=== PATIENT | male | born 1980 | race Caucasian/White ===

== ENCOUNTER 2019-11-11 10:19 | Emergency (ER) | payer OTHER ==
[~2019-11-11] VITALS: Ht 188 cm; Wt 136.1 kg
[~2019-11-11 10:19] MED LIST: Aspir 8181 MG PO; D3-20002000 UNIT PO; FISH1000 PO; LISI20 PO; METF850 PO; OMEP20ER PO; SIMV40 PO
[2019-11-11 10:59] LABS: BASOPHILS ABSOLUTE AUTO 0.05 K/mm3 (0.00-0.23); BASOPHILS PERCENT AUTO 1 % (0-2); EOSINOPHILS ABSOLUTE AUTO 0.35 K/mm3 (0.00-0.68); EOSINOPHILS PERCENT AUTO 3 % (0-6); Hematocrit 53.1 % (37.0-53.0); Hemoglobin 18.1 g/dL (13.5-17.5); IMMATURE GRAN ABSOLUTE AUTO 0.02 K/mm3 (0.00-0.10); IMMATURE GRAN PERCENT AUTO 0 % (0-1); LYMPHOCYTES ABSOLUTE AUTO 2.21 K/mm3 (0.84-5.20); LYMPHOCYTES PERCENT AUTO 20 % (21-46); MONOCYTES ABSOLUTE AUTO 0.79 K/mm3 (0.16-1.47); MONOCYTES PERCENT AUTO 7 % (4-13); Mean Corpuscular HGB Conc 34.1 g/dL (31.5-36.5); Mean Corpuscular Volume 91 fL (80-100); Mean Platelet Volume 11.2 fL (9.1-12.4); NEUTROPHILS ABSOLUTE AUTO 7.52 K/mm3 (1.96-9.15); NEUTROPHILS PERCENT AUTO 69 % (41-73); Platelet Count 264 K/mm3 (150-400); RDW Coefficient Variation 13.7 % (11.7-14.2); RDW Standard Deviation 46.5 fL (35.1-46.3); Red Blood Cell Count 5.84 M/mm3 (4.30-5.90); White Blood Cell Count 10.94 K/mm3 (4.00-11.30)
[2019-11-11 11:17] LABS: Alanine Aminotransfer (ALT/SGP 26 U/L (12-78); Albumin, Blood 3.9 g/dL (3.4-5.0); Alk Phos 69 U/L (50-136); Anion Gap 5 mmol/L (6-16); Aspartate Aminotrans (AST/SGOT 16 U/L (12-37); Bilirubin, Total 0.7 mg/dL (0.1-1.0); Blood Urea Nitrogen 12 mg/dL (8-24); Bun/Creatinine Ratio 15.1 (12.0-20.0); CO2, Blood 26 mmol/L (21-32); Calcium, Blood 9.5 mg/dL (8.5-10.1); Chloride, Blood 107 mmol/L (98-108); Creatinine, Blood 0.79 mg/dL (0.60-1.20); Glomerular Filtration Rate >60 (60-); Glucose, Blood 97 mg/dL (70-99); Potassium, Blood 3.6 mmol/L (3.5-5.5); Sodium, Blood 138 mmol/L (136-145); Total Protein, Blood 7.9 g/dL (6.4-8.2)
== END 2019-11-11 12:00 | disposition home or self-care (01) ==
LOC: ER 10:19
PROVIDERS: Emergency Medicine
DX: R10.10 Upper abdominal pain, unspecified (principal); E11.9 Type 2 diabetes mellitus without complications; F41.9 Anxiety disorder, unspecified; F17.200 Nicotine dependence, unspecified, uncomplicated; Z79.899 Other long term (current) drug therapy; Z79.82 Long term (current) use of aspirin; Z79.84 Long term (current) use of oral hypoglycemic drugs
CPT/HCPCS: 36415; 80053; 83690; 84484; 85025; 93005; 93010; 99283-25

== ENCOUNTER → 2020-01-01 | Outpatient (CLI) | payer OTHER ==
[2020-01-17 16:07] LABS: HEPATITIS C QUANTITATION HCV Not Detected IU/mL (.)
== END | disposition home or self-care (01) ==
LOC: LAB SHORT 13:24 → LAB 13:24
PROVIDERS: Family Medicine
DX: Z11.59 Encounter for screening for other viral diseases (principal)
CPT/HCPCS: 87522

== ENCOUNTER 2022-07-15 16:38 | Emergency (ER) | payer OTHER ==
[~2022-07-15] VITALS: Ht 188 cm; Wt 149.7 kg
[2022-07-15 17:17] LABS: BASOPHILS ABSOLUTE AUTO 0.07 K/mm3 (0.00-0.23); BASOPHILS PERCENT AUTO 1 % (0-2); EOSINOPHILS ABSOLUTE AUTO 0.52 K/mm3 (0.00-0.68); EOSINOPHILS PERCENT AUTO 5 % (0-6); Hematocrit 42.8 % (37.0-53.0); Hemoglobin 14.8 g/dL (13.5-17.5); IMMATURE GRAN ABSOLUTE AUTO 0.03 K/mm3 (0.00-0.10); IMMATURE GRAN PERCENT AUTO 0 % (0-1); LYMPHOCYTES ABSOLUTE AUTO 2.66 K/mm3 (0.84-5.20); LYMPHOCYTES PERCENT AUTO 26 % (21-46); MONOCYTES ABSOLUTE AUTO 0.86 K/mm3 (0.16-1.47); MONOCYTES PERCENT AUTO 8 % (4-13); Mean Corpuscular HGB 32.2 pg (26.0-34.0); Mean Corpuscular HGB Conc 34.6 g/dL (31.5-36.5); Mean Corpuscular Volume 93 fL (80-100); Mean Platelet Volume 10.8 fL (9.1-12.4); NEUTROPHILS ABSOLUTE AUTO 6.07 K/mm3 (1.96-9.15); NEUTROPHILS PERCENT AUTO 59 % (41-73); Platelet Count 274 K/mm3 (150-400); RDW Coefficient Variation 13.9 % (11.7-14.2); RDW Standard Deviation 47.5 fL (35.1-46.3); Red Blood Cell Count 4.59 M/mm3 (4.30-5.90); White Blood Cell Count 10.21 K/mm3 (4.00-11.30)
[2022-07-15] MEDS ORDERED: FLUOXETINE HCL20 M1 (17:50)
[2022-07-15] MEDS ORDERED: AMBIEN5 MG PO (17:50)
[2022-07-15] MEDS ORDERED: HYDCHL50 PO (17:51)
[2022-07-15] MEDS ORDERED: Ativan1 MG PO (17:51)
[2022-07-15] MEDS ORDERED: Bupropion HCl100 MG PO (17:51)
[2022-07-15 17:57] LABS: Albumin/Globulin Ratio 1.3 (0.8-1.8); Bilirubin, Total 0.5 mg/dL (0.1-1.0); Bun/Creatinine Ratio 23.1 (12.0-20.0); Calcium, Blood 9.3 mg/dL (8.5-10.1); Creatinine, Blood 0.87 mg/dL (0.60-1.20); Globulin, Blood 3.1 g/dL (2.2-4.0); Potassium, Blood 3.6 mmol/L (3.5-5.5); Total Protein, Blood 7.1 g/dL (6.4-8.2)
== END 2022-07-15 19:25 | disposition home or self-care (01) ==
LOC: ER 16:38
PROVIDERS: Emergency Medicine
DX: F41.9 Anxiety disorder, unspecified (principal); F17.290 Nicotine dependence, other tobacco product, uncomplicated
CPT/HCPCS: 36415; 71046; 80053; 85025; 93005; 93010; 99284-25

== ENCOUNTER 2024-06-06 13:31 | Emergency (ER) | payer OTHER ==
[~2024-06-06] VITALS: Ht 188 cm; Wt 158.8 kg
[~2024-06-06 13:31] MED LIST changes: +AMBIEN5 MG PO; +Ativan1 MG PO; +Bupropion HCl100 MG PO; +FLUOXETINE HCL20 M1; +HYDCHL50 PO
[2024-06-06 13:37] VITALS: BP 133/80
== END 2024-06-06 14:29 | disposition home or self-care (01) ==
LOC: ER 13:31
DX: S61.211A Laceration without foreign body of left index finger without damage to nail, initial encounter (principal); W29.3XXA Contact with powered garden and outdoor hand tools and machinery, initial encounter; F41.9 Anxiety disorder, unspecified; R73.03 Prediabetes; Z79.84 Long term (current) use of oral hypoglycemic drugs; Z79.82 Long term (current) use of aspirin; Z79.899 Other long term (current) drug therapy; Z87.891 Personal history of nicotine dependence
CPT/HCPCS: 12001; 99282-25

== ENCOUNTER 2024-06-14 13:19 | Emergency (ER) | payer OTHER ==
[~2024-06-14] VITALS: Ht 188 cm; Wt 113.4 kg
[2024-06-14 13:21] VITALS: BP 162/102
== END 2024-06-14 13:56 | disposition home or self-care (01) ==
LOC: ER 13:19
DX: T81.33XA Disruption of traumatic injury wound repair, initial encounter (principal); Y83.8 Other surgical procedures as the cause of abnormal reaction of the patient, or of later complication, without mention of misadventure at the time of the procedure; R73.03 Prediabetes; F41.9 Anxiety disorder, unspecified; F17.290 Nicotine dependence, other tobacco product, uncomplicated; Z79.899 Other long term (current) drug therapy; Z88.1 Allergy status to other antibiotic agents
CPT/HCPCS: 12001; 12020; 99281-25

== ENCOUNTER → 2024-06-25 | Outpatient (CLI) | payer OTHER ==
[2024-06-25 19:51] LABS: BASOPHILS ABSOLUTE AUTO 0.05 K/mm3 (0.00-0.23); BASOPHILS PERCENT AUTO 1 % (0-2); EOSINOPHILS ABSOLUTE AUTO 0.32 K/mm3 (0.00-0.68); EOSINOPHILS PERCENT AUTO 3 % (0-6); Hematocrit 40.3 % (37.0-53.0); Hemoglobin 13.8 g/dL (13.5-17.5); IMMATURE GRAN ABSOLUTE AUTO 0.04 K/mm3 (0.00-0.10); IMMATURE GRAN PERCENT AUTO 0 % (0-1); LYMPHOCYTES ABSOLUTE AUTO 2.81 K/mm3 (0.84-5.20); LYMPHOCYTES PERCENT AUTO 30 % (21-46); MONOCYTES ABSOLUTE AUTO 0.66 K/mm3 (0.16-1.47); MONOCYTES PERCENT AUTO 7 % (4-13); Mean Corpuscular HGB 31.9 pg (26.0-34.0); Mean Corpuscular HGB Conc 34.2 g/dL (31.5-36.5); Mean Corpuscular Volume 93 fL (80-100); Mean Platelet Volume 11.4 fL (9.1-12.4); NEUTROPHILS ABSOLUTE AUTO 5.41 K/mm3 (1.96-9.15); NEUTROPHILS PERCENT AUTO 58 % (41-73); Platelet Count 280 K/mm3 (150-400); RDW Coefficient Variation 12.5 % (11.7-14.2); RDW Standard Deviation 43.1 fL (35.1-46.3); Red Blood Cell Count 4.33 M/mm3 (4.30-5.90); White Blood Cell Count 9.29 K/mm3 (4.00-11.30)
[2024-06-25 20:46] LABS: Alanine Aminotransfer (ALT/SGP 62 U/L (12-78); Albumin, Blood 4.1 g/dL (3.4-5.0); Albumin/Globulin Ratio 1.1 (0.8-1.8); Alk Phos 75 U/L (50-136); Anion Gap 15 mmol/L (3-11); Aspartate Aminotrans (AST/SGOT 38 U/L (12-37); Bilirubin, Total 0.5 mg/dL (0.1-1.0); Blood Urea Nitrogen 27 mg/dL (8-24); Bun/Creatinine Ratio 23.5 (12.0-20.0); CHOL/HDL RATIO 3.5; CO2, Blood 21 mmol/L (21-32); Calcium, Blood 9.8 mg/dL (8.5-10.1); Chloride, Blood 102 mmol/L (98-108); Cholesterol 195 mg/dL (50-200); Creatinine, Blood 1.15 mg/dL (0.60-1.20); Globulin, Blood 3.8 g/dL (2.2-4.0); Glomerular Filtration Rate 80 (60-); Glucose, Blood 94 mg/dL (70-99); HDL Cholesterol 56 mg/dL (>39); LDL/HDL RATIO 1.7; Low Density Lipoprotein Chol 97 mg/dL (0-110); Potassium, Blood 3.5 mmol/L (3.5-5.5); Sodium, Blood 134 mmol/L (136-145); Total Protein, Blood 7.9 g/dL (6.4-8.2); Triglycerides 211 mg/dL (30-160); Very Low Density Lipoprot Chol 42 mg/dL (6-32)
== END ==
LOC: LAB SHORT 18:55 → LAB 18:55
PROVIDERS: Family Medicine
DX: I10 Essential (primary) hypertension (principal)
CPT/HCPCS: 80053; 80061; 84443; 85025